=== PATIENT | male | born 1970 | race Caucasian/White ===

== ENCOUNTER 2020-01-24 16:01 | Emergency (ER) | payer OTHER ==
[2020-01-24 16:35] VITALS: BP 142/89; PULSE 91; RESP 18; TEMP 98
--- NOTE | 2020-01-24 17:05 | XR ---
EXAMINATION TYPE: XR shoulder complete LT DATE OF EXAM: 01/24/2020 CLINICAL HISTORY: Left shoulder pain after heavy lifting injury. TECHNIQUE: Three views of the left shoulder are obtained. COMPARISON: None. FINDINGS: There is no acute fracture/dislocation evident in the left shoulder. Moderate narrowing ac romioclavicular joint. Glenohumeral joint is maintained. The visualized ribs are intact and unremark able. IMPRESSION: There is no acute fracture or dislocation in the left shoulder.
--- NOTE | 2020-01-24 17:15 | ED ---
Upper Extremity HPI - General Chief Complaint: Extremity Injury, Upper Stated Complaint: [facility] - lt shoulder injury Source: patient Mode of arrival: ambulatory Limitations: no limitations - History of Present Illness Initial Comments: Patient is a 49-year-old male presenting to the emergency department with a chief complaint of a pulled muscle. Patient reports he was lifting a heavy patient will be felt a sudden onset of left shoulder pain. Patient is a suspecting a pulled muscle. Patient reports the pain is localized to the lateral aspect of his left shoulder. Patient denies any numbness or tingling. Reports pain with abduction against resistance. Denies taking any medication to alleviate the symptoms. Reports incident occurred several hours prior to arrival. States the pain increased in severity as time went on. - Related Data Allergies Allergy/AdvReac Type Severity Reaction Status Date / Time No Known Allergies Allergy Verified 01/24/20 16:35 Review of Systems ROS Statement: Those systems with pertinent positive or pertinent negative responses have been documented in the HPI. ROS Other: All systems not noted in ROS Statement are negative. Past Medical History Past Medical History: No Reported History History of Any Multi-Drug Resistant Organisms: None Reported Past Surgical History: Orthopedic Surgery Additional Past Surgical History / Comment(s): abdominal surgery Past Psychological History: No Psychological Hx Reported Smoking Status: Never smoker Past Alcohol Use History: Occasional Past Drug Use History: None Reported General Exam Limitations: no limitations General appearance: alert, in no apparent distress, obese Head exam: Present: atraumatic, normocephalic, normal inspection Eye exam: Present: normal appearance, PERRL, EOMI Pupils: Present: normal accommodation ENT exam: Present: normal exam, normal oropharynx, mucous membranes moist Neck exam: Present: normal inspection, full ROM. Absent: tenderness Respiratory exam: Present: normal lung sounds bilaterally. Absent: respiratory distress, wheezes, rales Cardiovascular Exam: Present: regular rate, normal rhythm, normal heart sounds Extremities exam: Present: normal inspection, tenderness (Positive Benedict test. Negative empty can test.), normal capillary refill, other (+2 ulnar and radial pulses bilaterally.). Absent: full ROM (Limited range of motion with abduction above 90.) Back exam: Present: normal inspection, full ROM. Absent: tenderness Neurological exam: Present: alert, oriented X3 Psychiatric exam: Present: normal affect, normal mood Skin exam: Present: warm, dry, intact, normal color Course Vital Signs 01/24/20 16:32 Temperature 98 F Pulse Rate 91 Respiratory 18 Rate Blood Pressure 142/89 O2 Sat by Pulse 96 Oximetry Medical Decision Making - Medical Decision Making Patient is a 49-year-old male resenting to emergency Department with a chief complaint of left shoulder injury. On exam patient is an negative empty can test but does have a positive Benedict test. Neurovascularly intact. I suspect an impingement-type injury of any of the rotator cuff muscles. X-rays unremarkable. Patient advised to follow-up with firearms specialist in alternate between Tylenol and Motrin for pain control. Return parameters discussed the patient is understanding and agreeable. Case discussed with physician. Disposition Clinical Impression: Injury of left shoulder, Left shoulder pain Disposition: HOME SELF-CARE Condition: Stable Instructions (If sedation given, give patient instructions): Rotator Cuff Injury (ED) Additional Instructions: Follow-up with an firearms specialist if symptoms do not improve. Alternate between Tylenol and Motrin for pain control. Apply ice compress to minimize symptoms. Is patient prescribed a controlled substance at d/c from ED?: No Referrals: None,Stated [Primary Care Provider] - 1-2 days Tavo Samaniego MD [STAFF PHYSICIAN] - 1-2 days Time of Disposition: 17:14
== END 2020-01-24 17:19 | disposition home or self-care (01) ==
LOC: EC 16:01
DX: S49.92XA Unspecified injury of left shoulder and upper arm, initial encounter (principal); Z98.890 Other specified postprocedural states; X50.0XXA Overexertion from strenuous movement or load, initial encounter; Y93.89 Activity, other specified; Y92.69 Other specified industrial and construction area as the place of occurrence of the external cause; Y99.0 Civilian activity done for income or pay
CPT/HCPCS: 99283

== ENCOUNTER → 2020-01-30 | Outpatient (CLI) | payer OTHER ==
--- NOTE | 2020-01-30 12:19 | MR ---
EXAMINATION TYPE: MR shoulder LT wo con DATE OF EXAM: 01/30/2020 COMPARISON: Plain film 01/24/2020 HISTORY: Left shoulder strain of muscles TECHNIQUE: Multiplanar, multisequence imaging of the left shoulder is performed without contrast. FINDINGS: Rotator Cuff: There is some thickening, abnormal increased signal within the rotator cuff tendon. Joo ng the anterior margin there is a small focal area of increased signal consistent with a probable par tial-thickness tear or partial full-thickness tear. Acromioclavicular Joint: Arthropathy at the acromioclavicular joint causes mass effect on the musculo tendinous junction of supraspinatus Glenohumeral Joint: Intact Labrum: The anterior labrum shows a multiseptated focus of T2 bright signal measuring approximately 1 .7 x 0.6 cm in sagittal image #19 of the T2 data set suggesting a paralabral cyst, suspected tear at this level of the glenoid labrum. Biceps Tendon: The long head of biceps is in normal location within bicipital groove. Bone marrow signal: Focal geode or pseudocyst thought present at the anterior margin of the bicipital groove measuring 1 cm in size Other: No additional significant abnormality is appreciated. IMPRESSION: Para labral cyst, findings suggesting possible anterior labral tear. Partial tear or partial full-thi ckness tear of the rotator cuff tendon at its anterior insertion. There is tendinosis present.
== END | disposition home or self-care (01) ==
LOC: RADMRIMAIN 08:49
PROVIDERS: ATTEND Emergency Medicine
DX: M75.122 Complete rotator cuff tear or rupture of left shoulder, not specified as traumatic (principal); M75.82 Other shoulder lesions, left shoulder

== ENCOUNTER → 2020-02-19 | Outpatient (CLI) | payer SELFPAY ==
[2020-02-19 08:28] LABS: Basophils % (A) 1 %; Eosinophils # (A) 0.2 k/uL (0-0.7); Eosinophils % (A) 3 %; HCT 47.8 % (39.0-53.0); HGB 15.8 gm/dL (13.0-17.5); Lymphocytes % (A) 29 %; MCH 31.2 pg (25.0-35.0); MCV 94.5 fL (80.0-100.0); Mean Platelet Volume 7.5; Monocytes # (A) 0.4 k/uL (0-1.0); Monocytes % (A) 6 %; Neutrophils # (A) 4.1 k/uL (1.3-7.7); Neutrophils % (A) 60 %; Platelet Count 263 k/uL (150-450); RBC 5.06 m/uL (4.30-5.90); RDW 13.3 % (11.5-15.5); WBC 6.9 k/uL (3.8-10.6)
[2020-02-19 09:06] LABS: Potassium 4.2 mmol/L (3.5-5.1)
== END | disposition home or self-care (01) ==
LOC: LABPAT 07:59
PROVIDERS: ATTEND Orthopaedic Surgery
DX: Z01.818 Encounter for other preprocedural examination (principal); M75.42 Impingement syndrome of left shoulder
CPT/HCPCS: 36415; 80051; 85025

== ENCOUNTER → 2020-02-23 | Day surgery (SDC) | payer OTHER ==
[2020-02-21 17:13] VITALS: BMI 34.4
--- NOTE | 2020-02-22 09:15 | HP ---
HISTORY AND PHYSICAL CHIEF COMPLAINT: Left shoulder pain. 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 He was moving a heavy patient onto a stretcher when the stretcher got stuck and he felt a sharp pull in his shoulder. He had pain ever since. He is having pain with overhead use and at night. He denies previous problems. He has been taking ibuprofen with partial relief. Currently he is off work. He denies previous problems. PAST MEDICAL HISTORY: Negative. PAST SURGICAL HISTORY: Negative. CURRENT MEDICATION: Ibuprofen. He denies drug allergies. FAMILY HISTORY: Noncontributory. SOCIAL HISTORY: Negative for current tobacco or alcohol use. 16 POINT REVIEW OF SYSTEMS: Otherwise reviewed and is noncontributory. PHYSICAL EXAMINATION: On examination, the patient is approximately 5 foot 10, 250 pounds of endomorphic habitus. HEENT exam is nonfocal. Neck is supple. On examination of his left shoulder, he is tender about the anterior subacromial space. He has mild subacromial crepitus. Active range of motion, forward elevation, 155 degrees external rotation with the arms at side, 65 degrees internal rotation to T11. Motor strength is 5/5 for external rotation with the arm at the side, 5-/5 for abduction. Impingement test, NEER test, and THE Speed test are positive. His distal neurovascular exam appears intact in the left upper extremity. MRI report left shoulder 01/30/2020 shows evidence of an anterior supraspinatus tear along with a questionable anterior paralabral cyst. X-rays show a type 2 acromion. IMPRESSION: Left acute rotator cuff tear/impingement. RECOMMENDATIONS: I talked to the patient at length regarding his condition along with treatment options. At this point he is quite symptomatic after this acute injury. After thorough discussion, he opts to proceed with surgery. We will plan to proceed with arthroscopic evaluation with probable subacromial decompression and possible rotator cuff repair versus debridement. Risks and benefits were discussed at length in layman's terms. We will likely perform that as an outpatient procedure. MMODL / IJN: [id number] /
[~2020-02-23] MED LIST: DEXAMETHASONE SOD PHOSPHATE 10 MG/ML 1 ML VIAL IV ONE; EPINEPHrine (PF) 1 ML in SODIUM CHLORIDE 0.9% IRRIGATIO 3,000 ML IRRIGATION ONE; HYDROmorphone 0.5 MG/0.5 ML SYRINGE IVP PRN; LACTATED RINGERS 1,000 ML IV ONE; LIDOCAINE 1% INJ 10MG/ML (20 ML MDV) ONE; MIDAZOLAM 2 MG/2 ML VIAL IV PRN; MIDAZOLAM 2 MG/2 ML VIAL ONE; ONDANSETRON 4 MG/2 ML VIAL IVP ONE; ONDANSETRON 4 MG/2 ML VIAL ONE; PHENYLEPHRINE-0.9% NACL SYG 1 MG/10 ML SYRINGE ONE; PROPOFOL 10 MG/ML 20 ML VIAL IV ONE; ROCURONIUM BROMIDE 10 MG/ML 5 ML VIAL IV ONE; ROPIVACAINE 5 MG/ML 30 ML VIAL ONE; SCOPOLAMINE 1.5MG/72HR PATCH TRANSDERM ONE; SUCCINYLCHOLINE CHLORIDE 100 MG/5 ML SYR IV ONE; fentaNYL (PF) 50 MCG/ML 2 ML AMP IVP ONE; fentaNYL (PF) 50 MCG/ML 2 ML AMP ONE
[2020-02-23] MEDS: LACTATED RINGERS 1,000 ML IV SCH ×2 (07:06→07:57)
--- NOTE | 2020-02-23 07:24 | P.ANPRN ---
Procedure Note - Anesthesia - Nerve Block Performed Left Interscalene Single Time Out Performed: Yes Date of Procedure: 02/23/20 Procedure Start Time: : Procedure Stop Time: :13 Location of Patient: PreOp Indication: Requested by Surgeon Specifically requested for management of pain by DrLouis: Nasim Selby Sedation Type: Sedate with meaningful contact maintained Preparation: Sterile Prep Position: Supine Needle Types: Pajunk Needle Gauge: 21 Ultrasound used to visualize needle placement: Yes Ultrasound used to observe medication spread: Yes Injectate: 0.5% Ropivacaine (see comment for volume) (20 ml+10 mg Dexamethason) Blood Aspirated: No Pain Paresthesia on Injection Noted: No Resistance on Injection: Normal Image Stored and Saved: Yes Events: Uneventful and Well Tolerated
--- NOTE | 2020-02-23 09:18 | P.OP ---
Date of Procedure: 02/23/20 Preoperative Diagnosis: Left rotator cuff tear Postoperative Diagnosis: Left shoulder impingement/acromioclavicular joint arthritis Procedure(s) Performed: Left shoulder arthroscopic subacromial decompression/distal clavicular resection/rotator cuff repair Implants: Arthrex 4.75 mm swivel lock anchor 1 Anesthesia: [facility] Surgeon: Nasim Selby Slide Fastener Repairer #1: Dragan Elizabeth Estimated Blood Loss (ml): 10 Pathology: none sent Condition: stable Disposition: PACU Indications for Procedure: The patient's a 49-year-old male who presents after injuring himself at work recently with persistent left shoulder symptoms. Clinically and by MRI he is noted of evidence of a symptomatic acute rotator cuff tear. A discussion of the risks and benefits of operative intervention versus continued conservative measures with patient. He opted to proceed with surgery. Operative risks to include infection, neurovascular injury, development of blood clots, possible tendon rerupture, possible postoperative stiffness and need for subsequent procedures was discussed. Informed consent was obtained. Operative Findings: As below Description of Procedure: The patient was brought to the operating room, and after induction of general anesthesia was placed in a beachchair position. A preoperative interscalene block was placed for postoperative analgesia. I examined the left shoulder. There was no gross block to passive motion or gross glenohumeral instability. The left upper extremity was prepped and draped in normal fashion. The bony outlines the acromion, distal clavicle, and coracoid process were outlined with a skin marker. The glenohumeral joint was inflated with 50 mL of saline utilizing a spinal needle from posterior approach. A posterior portal was made through a 5 mm skin incision 1 cm medial and inferior to the posterior lateral border time. A blunt trocar was used to easily into the joint. Diagnostic arthroscopy was performed. An anterior portal was made just lateral to the coracoid process entering the joint above the subscapularis tendon. The subscapularis tendon appeared to be intact. Anterior labrum was intact. The inferior recess was inspected. The posterior labrum was intact. The biceps tendon and its anchor were intact. On inspection the rotator cuff, a full- thickness tear involving the anterior aspect the supraspinatus was noted measuring 1 cm.. A lateral portal was made 2 centimeters inferior to the anterior lateral border of the acromion. The rotator cuff was inspected, and again the 1 cm full-thickness tear was noted. The edges were debrided with motorized shaver. This was easily brought back to the greater tuberosity. The soft tissue on the undersurface of the acromion was debrided with a motorized shaver and electrocautery clearly defining the anterior medial and lateral borders as well as the distal clavicle. An anterior inferior acromioplasty was performed with a motorized nafisa starting anterolateral, then extending this posteriorly, then extending this medially. I converted to a flat acromion and this was verified in the posterior and lateral viewing portals. The distal clavicle appeared to impinge in the subacromial space therefore the distal 4 mm of clavicle was resected with a motorized bur. A #2 fiber tape was passed through the rotator cuff with a scorpion suture passer. A lateral anchor was passed with the appropriate starting awl. A 4.75 mm swivel lock anchor was inserted with good purchase. Final arthroscopic view showed adequate compression at the footprint. The arthroscope was then removed. The portals were closed with simple 3-0 nylon sutures. A sterile dressing was applied in addition to a sling. The patient was then awoken from general anesthesia and transferred to recovery room in good condition. Blood loss was estimated at 10 mL. No complications were incurred. Sponge and needle counts were correct in the case. Ponce BALL assisted and the major components of the case to include arm positioning, anchor placement, and rotator cuff repair.
[2020-02-23 09:37] VITALS: TEMP 96.9
[2020-02-23 10:15] VITALS: RESP 17
[2020-02-23 11:01] VITALS: BP 122/75; PULSE 80
== END | disposition home or self-care (01) ==
LOC: OR 06:02
PROVIDERS: ATTEND Orthopaedic Surgery
DX: S46.012A Strain of muscle(s) and tendon(s) of the rotator cuff of left shoulder, initial encounter (principal); M19.012 Primary osteoarthritis, left shoulder; X50.0XXA Overexertion from strenuous movement or load, initial encounter
CPT/HCPCS: 64415; 76942; 29824; 29826; 29827; C1713 ×2; J2250; J1100; J0690; J2405; J0171; J2001; J3010; J2795; J2370; J0330; J2704

== ENCOUNTER → 2020-11-14 | Outpatient (CLI) | payer OTHER ==
--- NOTE | 2020-11-15 07:51 | MR ---
EXAMINATION TYPE: MR shoulder RT wo con DATE OF EXAM: 11/14/2020 COMPARISON: None HISTORY: R shoulder pain Technique: Multiplanar, multiecho imaging on a 3.0 Radha magnet is performed through the shoulder. Findings: Long head of the biceps tendon is within the bicipital groove. No significant fluid around the long head biceps tendon is evident. No significant joint effusion is evident. Subacromial bursa and subdeltoid bursa appear normal. Edwin oid labrum as visualized on this noncontrast study appears intact. Rotator cuff tendons are evaluated. Rotator cuff tendons as visualized appear intact. The acromiocl avicular junction has mild hypertrophy. Mass some mild inferior spurring which can contribute to impi ngement syndrome IMPRESSIONS: 1. Limited examination due to body habitus and coil signal. 2. No obvious changes to suggest rotator cuff tear.
== END | disposition home or self-care (01) ==
LOC: RADMRIMAIN 11:00
PROVIDERS: ATTEND Orthopaedic Surgery
DX: M25.511 Pain in right shoulder (principal)

== ENCOUNTER → 2021-05-26 | Outpatient (CLI) | payer OTHER ==
[2021-05-26 10:40] LABS: Basophils % (A) 0 %; Eosinophils # (A) 0.3 k/uL (0-0.7); Eosinophils % (A) 4 %; HCT 47.6 % (39.0-53.0); HGB 16.3 gm/dL (13.0-17.5); Lymphocytes # (A) 2.3 k/uL (1.0-4.8); Lymphocytes % (A) 28 %; MCHC 34.2 g/dL (31.0-37.0); MCV 96.4 fL (80.0-100.0); Mean Platelet Volume 7.5; Monocytes # (A) 0.5 k/uL (0-1.0); Monocytes % (A) 6 %; Neutrophils % (A) 61 %; Platelet Count 287 k/uL (150-450); RBC 4.93 m/uL (4.30-5.90); WBC 8.3 k/uL (3.8-10.6)
[2021-05-26 10:46] LABS: Potassium 4.3 mmol/L (3.5-5.1)
== END | disposition home or self-care (01) ==
LOC: LABPAT 09:02
PROVIDERS: ATTEND Orthopaedic Surgery
DX: Z01.818 Encounter for other preprocedural examination (principal)
CPT/HCPCS: 36415; 80051; 85025; 93005

== ENCOUNTER 2021-05-30 05:58 | Day surgery (SDC) | payer OTHER ==
--- NOTE | 2021-05-28 13:19 | HP ---
HISTORY AND PHYSICAL CHIEF COMPLAINT: Right shoulder pain. HISTORY OF PRESENT ILLNESS: Patient is a 50-year-old [id number] male who presents with progressive right shoulder pain for the past year. He is having a difficult time with overhead activity and at night. He has tried previous conservative measures to include medications, therapy and injections, without much relief. He notes daily pain that limits him. PAST MEDICAL HISTORY: Otherwise negative. PAST SURGICAL HISTORY: Significant for left shoulder arthroscopic rotator cuff repair. CURRENT MEDICATIONS: Tramadol and ibuprofen. ALLERGIES: HE DENIES DRUG ALLERGIES. FAMILY HISTORY: Noncontributory. SOCIAL HISTORY: Negative for current tobacco or alcohol use. REVIEW OF SYSTEMS: Sixteen-point review of systems is otherwise reviewed and is noncontributory. PHYSICAL EXAMINATION: On examination, the patient is approximately 5 feet 10 inches, 260 pounds of endomorphic habitus. HEENT exam is nonfocal. Neck is supple. On examination of his right shoulder, he is tender about the anterior subacromial space. Active range of motion: Forward elevation 155 degrees of flexion, external rotation with arm at side 65 degrees, internal rotation to L1. Motor strength 5/5 for abduction and external rotation. Impingement and Neer tests are positive. His distal neurovascular exam appears intact in the right upper extremity. X-rays of the right shoulder show a type 2 acromion with maintained humeral head to acromial distance. MRI report of the right shoulder shows the rotator cuff appears to be intact. IMPRESSION: Right shoulder impingement/rotator cuff tendinitis. RECOMMENDATIONS: I talked to the patient at length regarding his condition along with treatment options. At this point he is quite symptomatic and limited with having pain despite conservative measures. After thorough discussion, he opts to proceed with surgery. We will plan to proceed with arthroscopic evaluation with probable subacromial decompression. Risks and benefits were discussed at length in layman's terms. MMODL / IJN: [id number] /
[2021-05-29 08:58] VITALS: BMI 37.3
[~2021-05-30 05:58] MED LIST changes: -DEXAMETHASONE SOD PHOSPHATE 10 MG/ML 1 ML VIAL IV ONE; +DEXAMETHASONE SOD PHOSPHATE 4 MG/ML 1 ML VIAL IV ONE; -EPINEPHrine (PF) 1 ML in SODIUM CHLORIDE 0.9% IRRIGATIO 3,000 ML IRRIGATION ONE; -HYDROmorphone 0.5 MG/0.5 ML SYRINGE IVP PRN; -LACTATED RINGERS 1,000 ML IV ONE; +LACTATED RINGERS 1,000 ML IV SCH; -LIDOCAINE 1% INJ 10MG/ML (20 ML MDV) ONE; -MIDAZOLAM 2 MG/2 ML VIAL ONE; -ONDANSETRON 4 MG/2 ML VIAL ONE; -PHENYLEPHRINE-0.9% NACL SYG 1 MG/10 ML SYRINGE ONE; -PROPOFOL 10 MG/ML 20 ML VIAL IV ONE; -ROCURONIUM BROMIDE 10 MG/ML 5 ML VIAL IV ONE; -ROPIVACAINE 5 MG/ML 30 ML VIAL ONE; -SUCCINYLCHOLINE CHLORIDE 100 MG/5 ML SYR IV ONE; -fentaNYL (PF) 50 MCG/ML 2 ML AMP IVP ONE; -fentaNYL (PF) 50 MCG/ML 2 ML AMP ONE
[2021-05-30] MEDS ORDERED: LIDOCAINE 1% (10MG/ML) FOR IV START INTRADERMA ONE (06:53)
[2021-05-30] MEDS ORDERED: HYDROmorphone 0.5 MG/0.5 ML SYRINGE IVP PRN (07:00)
[2021-05-30] MEDS ORDERED: MIDAZOLAM 2 MG/2 ML VIAL IVP ONE (07:04)
[2021-05-30] MEDS ORDERED: fentaNYL (PF) 50 MCG/ML 2 ML AMP IVP ONE (07:04)
[2021-05-30] MEDS ORDERED: PROPOFOL 10 MG/ML 20 ML VIAL IV ONE (07:50)
[2021-05-30] MEDS ORDERED: PHENYLEPHRINE-0.9% NACL SYG 1,000 MCG/10 ML SYRINGE ONE (07:50)
[2021-05-30] MEDS ORDERED: SUCCINYLCHOLINE CHLORIDE 100 MG/5 ML SYR IV ONE (07:50)
[2021-05-30] MEDS ORDERED: LIDOCAINE 1% INJ 10MG/ML (20 ML MDV) ONE (07:50)
[2021-05-30] MEDS ORDERED: NEOSTIGMINE 1 MG/ML 10 ML VIAL ONE (07:50)
[2021-05-30] MEDS ORDERED: ROPIVACAINE 5 MG/ML 30 ML VIAL ONE (07:50)
[2021-05-30] MEDS ORDERED: MIDAZOLAM 2 MG/2 ML VIAL ONE (07:50)
[2021-05-30] MEDS ORDERED: ROCURONIUM 10 MG/ML (5 ML VIAL) IV ONE (07:50)
[2021-05-30] MEDS ORDERED: GLYCOPYRROLATE 0.2 MG/ML 2 ML VIAL ONE (07:50)
--- NOTE | 2021-05-30 08:58 | P.OP ---
Date of Procedure: 05/30/21 Preoperative Diagnosis: Right shoulder impingement/rotator cuff tendinitis Postoperative Diagnosis: Same in addition to a partial thickness articular surface rotator cuff tear and type I superior labral tear Procedure(s) Performed: Right shoulder arthroscopic subacromial decompression/superior labral debridement Anesthesia: carson SIMON Surgeon: Nasim Selby Rehabilitation Consultant #1: Titi Em Estimated Blood Loss (ml): 10 Pathology: none sent Condition: stable Disposition: PACU Indications for Procedure: The patient's a 50-year-old male presents with persistent/progressive right shoulder pain despite conservative measures. A discussion of the risks and benefits of operative intervention versus continued conservative measures was made with patient. He opted to proceed with surgery. Operative risks to include infection, neurovascular injury, development of blood clots, possible incomplete resolution of symptoms, possible worsening symptoms and need for subsequent procedures was discussed. Informed consent was obtained. Operative Findings: As below Description of Procedure: The patient was brought to the operating room, and after induction of general anesthesia was placed in a beachchair position. A preoperative interscalene block was placed for postoperative analgesia. I examined the right shoulder. There was no gross block to passive motion or gross glenohumeral instability. The right upper extremity was prepped and draped in normal fashion. The bony outlines the acromion, distal clavicle, and coracoid process were outlined with a skin marker. The glenohumeral joint was inflated with 50 mL of saline utilizing a spinal needle from posterior approach. A posterior portal was made through a 5 mm skin incision 1 cm medial and inferior to the posterior lateral border time. A blunt trocar was used to easily into the joint. Diagnostic arthroscopy was performed. An anterior portal was made just lateral to the coracoid process entering the joint above the subscapularis tendon. The subscapularis tendon appeared to be intact. Anterior labrum was intact. The inferior recess was inspected. The posterior labrum was intact. On inspection of the superior labrum, there was a type I tear that was debrided back to stable base with a motorized shaver. The remaining anchor appear to be intact. The intra-articular portion the biceps was intact. On inspection the rotator cuff, a partial thickness tear involving the anterior aspect the supraspinatus was noted involving 10% of the tendon thickness. This was debrided back to a stable base with a motorized shaver. The remaining rotator cuff appeared intact on the articular surface. The arthroscope was placed into the subacromial space. A lateral portal was made 2 centimeters inferior to the anterior lateral border of the acromion. The soft tissue on the undersurface of the acromion was debrided with a motorized shaver and electrocautery clearly defining the anterior medial and lateral borders as well as the distal clavicle. An anterior inferior acromioplasty was performed with a motorized nafisa starting anterolateral, then extending this posteriorly, then extending this medially. I converted to a flat acromion and this was verified in the posterior and lateral viewing portals. There was significant bursal thickening in the subacromial space. The stability with a motorized shaver. There was some fraying of the rotator cuff however no blanco full thickness tears. The arthroscope was then removed. The portals were closed with simple 3-0 nylon sutures. A sterile dressing was applied in addition to a sling. The patient was then awoken from general anesthesia and transferred to recovery room in good condition. Blood loss was estimated at 10 mL. No complications were incurred. Sponge and needle counts were correct in the case. Titi BALL assisted and the major components of the case to include arm positioning, decompression, and labral debridement.
[2021-05-30 09:09] VITALS: TEMP 96.8
[2021-05-30] MEDS ORDERED: LACTATED RINGERS 1,000 ML IV ONE (09:12)
[2021-05-30 10:01] VITALS: BP 118/72; PULSE 94; RESP 18
--- NOTE | 2021-05-30 13:38 | P.ANPRN ---
Procedure Note - Anesthesia - Nerve Block Performed Right Interscalene Single Time Out Performed: Yes ([id number]) Date of Procedure: 05/30/21 Procedure Start Time: 07:04 Procedure Stop Time: 07:09 Location of Patient: PreOp Indication: Acute Post-Operative Pain, Requested by Surgeon Specifically requested for management of pain by : Nasim Selby Sedation Type: Sedate with meaningful contact maintained Preparation: Sterile Prep Position: Supine Catheter: None Needle Types: Pajunk Needle Gauge: 21 Ultrasound used to visualize needle placement: Yes Ultrasound used to observe medication spread: Yes Injectate: 0.5% Ropivacaine (see comment for volume) Blood Aspirated: No Pain Paresthesia on Injection Noted: No Resistance on Injection: Normal Image Stored and Saved: Yes Events: Uneventful and Well Tolerated
== END 2021-05-30 10:26 | disposition home or self-care (01) ==
LOC: OR 05:58
PROVIDERS: ATTEND Orthopaedic Surgery
DX: M25.811 Other specified joint disorders, right shoulder (principal); M75.101 Unspecified rotator cuff tear or rupture of right shoulder, not specified as traumatic; S43.431A Superior glenoid labrum lesion of right shoulder, initial encounter; X58.XXXA Exposure to other specified factors, initial encounter; G47.33 Obstructive sleep apnea (adult) (pediatric); F41.9 Anxiety disorder, unspecified; K21.9 Gastro-esophageal reflux disease without esophagitis; Z98.890 Other specified postprocedural states; Z79.1 Long term (current) use of non-steroidal anti-inflammatories (NSAID); Z79.891 Long term (current) use of opiate analgesic
CPT/HCPCS: 64415; 76942; 29822; J2250; J1100; J2710; J0690; J2405; J2001; J3010; J2795; J2370; J0330; J2704

== ENCOUNTER → 2021-06-10 | Outpatient (CLI) | payer OTHER ==
--- NOTE | 2021-06-10 12:10 | XR ---
EXAMINATION TYPE: XR knee limited LT DATE OF EXAM: 06/10/2021 CLINICAL HISTORY: Pain after twisting injury TECHNIQUE: Frontal and lateral views of the left knee are obtained. COMPARISON: MRI left knee July 04, 2015 FINDINGS: There is no acute fracture/dislocation evident in left knee. Mild to moderate tricompartme nt joint space loss and spurring greatest medial tibiofemoral compartment is redemonstrated. The ove rlying soft tissue shows mild posterior vascular calcification. IMPRESSION: As above.
== END | disposition home or self-care (01) ==
LOC: RADXRMAIN 11:39
PROVIDERS: ATTEND Family Medicine
DX: S83.92XA Sprain of unspecified site of left knee, initial encounter (principal)

== ENCOUNTER → 2023-03-09 | Outpatient (CLI) | payer OTHER ==
--- NOTE | 2023-03-10 10:15 | MR ---
EXAMINATION TYPE: MR knee RT wo con DATE OF EXAM: 03/09/2023 COMPARISON: None HISTORY: Right knee pain TECHNIQUE: Multiplanar, multisequence imaging of the right knee is performed without IV contrast. FINDINGS: MEDIAL MENISCUS: Posterior horn medial meniscus. Anterior horn is intact. LATERAL MENISCUS: Anterior and posterior horns are intact without tear. CRUCIATE LIGAMENTS: The anterior and posterior cruciate ligaments are intact and unremarkable. COLLATERAL LIGAMENTS: The medial collateral ligament and lateral collateral ligament complex are inta ct and unremarkable. EXTENSOR MECHANISM: Visualized quadriceps and patellar tendons are intact. EFFUSION: No significant suprapatellar joint effusion. POPLITEAL CYST: No popliteal/morrow cyst. TRICOMPARTMENT SPACES: Mild narrowing medial tibiofemoral joint space. Subchondral cyst formation pos terior and medial tibial plateau. CARTILAGE: Thinning of the medial tibiofemoral cartilage. BONE MARROW SIGNAL: No focal abnormal marrow signal is appreciated. OTHER: No additional significant abnormality is appreciated. IMPRESSION: 1. Tear posterior horn medial meniscus. 2. Changes of osteoarthritis.
== END | disposition home or self-care (01) ==
LOC: RADMRIMAIN 18:35
PROVIDERS: ATTEND Orthopaedic Surgery
DX: M23.221 Derangement of posterior horn of medial meniscus due to old tear or injury, right knee (principal); M17.11 Unilateral primary osteoarthritis, right knee

== ENCOUNTER → 2023-03-09 | Outpatient (CLI) | payer OTHER ==
--- NOTE | 2023-03-09 20:28 | MR ---
EXAMINATION TYPE: MR lumbar spine wo con DATE OF EXAM: 03/09/2023 7:43 PM COMPARISON: Lumbar spine 03/01/2023. CLINICAL INDICATION: Male, 52 years old with history of [id number]; PHH, Low back pain that radiates down left leg TECHNIQUE: Multi planar, multi sequence imaging was performed utilizing: T1-weighted, T2-weighted, a nd turbo inversion recovery imaging of the lumbar spine. IV Contrast: None. FINDINGS: Alignment: The lumbar vertebral bodies have preserved heights and alignment. Cord: The conus medullaris and the distal spinal cord appear unremarkable with regards to their signa l intensity and morphology. Bones/Discs: Mild multilevel disc degeneration changes with some Modic endplate changes, disc desicca tion, Schmorl's nodes and facet joint arthropathy. Findings worse at L5-S1. T12-L1: No evidence of significant spinal canal stenosis or neural foraminal stenosis. L1-L2: No evidence of significant spinal canal stenosis or neural foraminal stenosis. L2-L3: No evidence of significant spinal canal stenosis or neural foraminal stenosis. L3-L4: No evidence of significant spinal canal stenosis or neural foraminal stenosis. L4-L5: No evidence of significant spinal canal stenosis or neural foraminal stenosis. L5-S1: The disc is rounded posterior morphology without significant spinal canal stenosis. Facet join t arthropathy with mild to moderate bilateral left greater than right. Neural foraminal stenosis. No significant spinal canal or neural foraminal stenosis in the remainder of the visualized levels. Other findings: None. IMPRESSION: 1. No definitive evidence of disc herniation or significant spinal canal stenosis. 2. Mild disc degeneration with associated osteoarthritic changes.
== END | disposition home or self-care (01) ==
LOC: RADMRIMAIN 18:32
PROVIDERS: ATTEND Orthopaedic Surgery
DX: M51.16 Intervertebral disc disorders with radiculopathy, lumbar region (principal); M47.26 Other spondylosis with radiculopathy, lumbar region
CPT/HCPCS: 72148

== ENCOUNTER → 2023-05-13 | Outpatient (CLI) | payer OTHER ==
[2023-05-13 14:23] VITALS: BP 131/91; PULSE 76; RESP 16; TEMP 98.1
--- NOTE | 2023-05-13 14:42 | P.PAINPG ---
PQRS Measure Charge Sheet Comment: A 52 yr old male with a history of severe and chronic LBP secondary to lumbar DDD and spondylosis with facet arthropathy without myelopathy presents today for evalautin s/p BL MBB L4-L5, L5-S1 #1. Pt states he experienced 80 % pain relief x 48 hrs s/p procedure. Pain level is provoked at 7 /10 in intensity, constant, localized in the lumbar spine, sharp in character without shooting pain . Pain is provoked by sitting/ standing for periods of 20 min or more. Pain is alleviated with injections, PT semi weekly x 5 wks w last visit in May 2023, heat, ice, medications ([employer], Ibu), repositioning and rest. Oswestry axial pain score at 32. Interventional pain procedures completed include BL MBB L3-L5 x1 Patient is currently on [employer], Ibu Patient denies any side effects of the medication(s), denies excessive drowsiness or sleepiness, denies suicidal ideation and reports that the current pain medication is helping to control the pain and improve activities of daily living. Patient denies any motor or sensory deficits. Patient denies any fever or night sweats, denies any change in the bowel movements or urination. Physical Examination: -Constitutional: Cooperative. Not in acute distress . - Neurologic: Cranial nerve II to XII intact. No focal neurological deficits. - Psychatric: Alert & oriented x 3. Matching mood & appropriate affect. Judgment and insight intact. - Musculoskeletal: Cervical spine: Muscle bulk/ tone/ strength in the bilateral upper extremities normal Vertebral body tenderness to palpation over Spurling test positive Distraction test positive Facet loading test positive TTP Thoracic spine Muscle bulk / tone/ strength in the bilateral paraspinal muscles normal Vertebral body tender to palpation over Facet loading test positive TTP Lumbar spine: Motor bulk/ tone/ strength lower extremities , thigh and legs : 5/5 Deep tendon reflexes : Normal Knee Jerk. Normal Ankle Jerk . Vertebral body tenderness to palpation over Jameson Test positive Lumbar Facet Loading Test positive over BL L4-L5, L5-S1 Straight Leg Raise: positive at 30 degrees right side/ left side Gaenslen's Test positive Sacral spine : Severe tenderness over the Sacroiliac joint: right side / left side Range of motion: Flexion of the lumbar spine <60 degrees Range of motion: Extension of the lumbar spine <20 degrees Gaenslen's Test positive right side / left side Leena test: positive right side / left side Thigh Thrust Test positive right side / left side Sacral Thrust Test positive right side / left side Assessment and plan: Chronic LBP secondary to lumbar DDD, spondylosis with facet arthropathy without myelopathy Recommendation of BL MBB L3-L5 #2. May need a series of injections, up until RFA, for optimal pain relief. Risks, benefits of procedure discussed and pt verbalized understanding. Admits to anticoagulant use or medical history of diabetes. Protocol for discontinuation/ continuation of medications bert procedure discussed. Minimal anesthesia provided, if clinically indicated, consisting of Versed and Fentanyl. All questions answered. I have spent less than 30 minutes on patient care today. Dr Naranjo was available by phone for the evaluation of this patient. The time was used to review the medical records including relevant urine studies and Prescription history (MAPs), review of the available imaging, evaluation and examination of the patient, coordination of care with the medical staff and if applicable referring physicians, as well as creation of the medical record PQRS Narrative: Smoking Status Never smoker Hx Alcohol Use (MH) No Home Medications: Ambulatory Orders DULoxetine HCL [Cymbalta] 60 mg PO DAILY 02/22/23 FLUoxetine HCL 20 mg PO DAILY 02/22/23 HYDROcodone/APAP 7.5-325MG [[employer] 7.5-325] 1 tab PO Q6HR PRN 3 Days #12 tab 02/22/23 Meloxicam [Mobic] 15 mg PO BID 02/22/23 Omeprazole 40 mg PO DAILY 02/22/23 amLODIPine [Norvasc] 5 mg PO DAILY 02/22/23 diazePAM [Valium] 5 mg PO BID 02/22/23 Controlled Substance Measures - Controlled Substance Measures Is patient prescribed a controlled substance at discharge?: No
== END ==
LOC: PNWHC3 13:50
PROVIDERS: ATTEND Specialist
DX: M51.37 Other intervertebral disc degeneration, lumbosacral region (principal); M47.817 Spondylosis without myelopathy or radiculopathy, lumbosacral region; G89.29 Other chronic pain
CPT/HCPCS: 99211

== ENCOUNTER → 2023-06-16 | Outpatient (CLI) | payer OTHER ==
[2023-06-16 14:16] VITALS: BP 176/92; PULSE 88; RESP 16; TEMP 98
--- NOTE | 2023-06-16 14:50 | P.PAINPG ---
Objective - Vital Signs Vital signs: Intake & Output 06/15/23 06/16/23 06/16/23 18:59 06:59 18:59 Weight 113.398 kg PQRS Measure Charge Sheet Comment: A 52 yr old male with a history of severe and chronic LBP secondary to lumbar DDD and spondylosis with facet arthropathy without myelopathy presents today for evaluation s/p BL MBB L4-L5, L5-S1 #2. Pt states he experienced 80 % pain relief x 1.5 wks s/p procedure. Pain level is provoked at 6 /10 in intensity, constant, predominantly axial, localized in the lumbar spine, sharp in character without shooting pain . Pain is provoked by sitting/ standing for periods of 20 min or more. Pain is alleviated with injections, PT semi weekly x 5 wks w last visit in May 2023, heat, ice, medications, repositioning and rest. Oswestry axial pain score at 30. Interventional pain procedures completed include BL MBB L3-L5 x2, Cervical injections w a Neurologist Patient is currently on [place], Ibu Patient denies any side effects of the medication(s), denies excessive drowsiness or sleepiness, denies suicidal ideation and reports that the current pain medication is helping to control the pain and improve activities of daily living. Patient denies any motor or sensory deficits. Patient denies any fever or night sweats, denies any change in the bowel movements or urination. Physical Examination: -Constitutional: Cooperative. Not in acute distress . - Neurologic: Cranial nerve II to XII intact. No focal neurological deficits. - Psychatric: Alert & oriented x 3. Matching mood & appropriate affect. Judgment and insight intact. - Musculoskeletal: Cervical spine: Muscle bulk/ tone/ strength in the bilateral upper extremities normal Vertebral body tenderness to palpation over Spurling test positive Distraction test positive Facet loading test positive TTP Thoracic spine Muscle bulk / tone/ strength in the bilateral paraspinal muscles normal Vertebral body tender to palpation over Facet loading test positive TTP Lumbar spine: Motor bulk/ tone/ strength lower extremities , thigh and legs : 5/5 Deep tendon reflexes : Normal Knee Jerk. Normal Ankle Jerk . Vertebral body tenderness to palpation over Jameson Test positive Lumbar Facet Loading Test positive over BL L4-L5, L5-S1 Straight Leg Raise: positive at 30 degrees right side/ left side Gaenslen's Test positive Sacral spine : Severe tenderness over the Sacroiliac joint: right side / left side Range of motion: Flexion of the lumbar spine <60 degrees Range of motion: Extension of the lumbar spine <20 degrees Gaenslen's Test positive right side / left side Leena test: positive right side / left side Thigh Thrust Test positive right side / left side Sacral Thrust Test positive right side / left side Assessment and plan: Chronic LBP secondary to lumbar DDD, spondylosis with facet arthropathy without myelopathy Recommendation of BL RFA L3-L5. Exhibited optimal pain relief w prior MBBs. Risks, benefits of procedure discussed and pt verbalized understanding. Admits to anticoagulant use or medical history of diabetes. Protocol for discontinuation/ continuation of medications bert procedure discussed. Minimal anesthesia provided, if clinically indicated, consisting of Versed and Fentanyl. All questions answered. I have spent less than 30 minutes on patient care today. Dr Naranjo was available by phone for the evaluation of this patient. The time was used to review the medical records including relevant urine studies and Prescription hi story (MAPs), review of the available imaging, evaluation and examination of the patient, coordination of care with the medical staff and if applicable referring physicians, as well as creation of the medical record - Pain Location Bilateral Lower Back Non-Pharmacological Interventions: Heat, Ice, Inactivity, Physical Therapy, Sitting Pharmacological Interventions: Block, PRN Medication, Scheduled Medication, Topical Medication PQRS Narrative: Smoking Status Never smoker Hx Alcohol Use (MH) No Home Medications: Ambulatory Orders DULoxetine HCL [Cymbalta] 60 mg PO DAILY 02/22/23 FLUoxetine HCL 20 mg PO DAILY 02/22/23 HYDROcodone/APAP 7.5-325MG [[place] 7.5-325] 1 tab PO Q6HR PRN 3 Days #12 tab 02/22/23 Meloxicam [Mobic] 15 mg PO BID 02/22/23 Omeprazole 40 mg PO DAILY 02/22/23 amLODIPine [Norvasc] 5 mg PO DAILY 02/22/23 diazePAM [Valium] 5 mg PO BID 02/22/23 Controlled Substance Measures - Controlled Substance Measures Is patient prescribed a controlled substance at discharge?: No
== END ==
LOC: PNWHC3 13:22
PROVIDERS: ATTEND Specialist
DX: M51.37 Other intervertebral disc degeneration, lumbosacral region (principal); M47.817 Spondylosis without myelopathy or radiculopathy, lumbosacral region; G89.29 Other chronic pain; E11.9 Type 2 diabetes mellitus without complications
CPT/HCPCS: 99211

== ENCOUNTER 2023-07-09 06:08 | Day surgery (SDC) | payer OTHER ==
[2023-07-09] MEDS ORDERED: LACTATED RINGERS 1,000 ML IV SCH (06:58)
[2023-07-09] MEDS ORDERED: ONDANSETRON 4 MG/2 ML VIAL ONE (07:08)
[2023-07-09] MEDS ORDERED: ONDANSETRON 4 MG/2 ML VIAL IVP ONE (07:11)
[2023-07-09 07:15] VITALS: RESP 18; TEMP 100.5
[2023-07-09] MEDS ORDERED: methylPREDNISolone ACETATE 40 MG/ML 1 ML VIAL ONE (07:28)
[2023-07-09] MEDS ORDERED: ROPIVACAINE 5MG/ML 20ML VIAL ONE (07:28)
[2023-07-09] MEDS ORDERED: MIDAZOLAM 2 MG/2 ML VIAL ONE (07:38)
[2023-07-09] MEDS ORDERED: fentaNYL (PF) 50 MCG/ML 2 ML AMP ONE (07:38)
--- NOTE | 2023-07-09 08:02 | P.PCN ---
Date of Procedure: 07/09/23 Procedure(s) Performed: PREOPERATIVE DIAGNOSIS: 1-Lumbar Spondylosis with Facet Arthropathy without myelopathy. 2- Lumber degenerative disc disease. POSTOPERATIVE DIAGNOSIS: 1- Lumbar Spondylosis with Facet Arthropathy without myelopathy. 2- Lumber degenerative disc disease. PROCEDURES : Bilateral Radiofrequency thermocoagulation, L3 , L4 , and L5 medial branch, with fluoroscopic guidance (fluoroscopy images available in the radiology department) ( to denervate the facet joint at bilateral L4-5 ,and L5-S1 levels ). ANESTHESIA: Monitored anesthesia care as per anesthesia department . EBL: Minimal PROCEDURE INDICATION: The patient with low back pain secondary to lumbar facet arthropathy who had more than 50% relief of her pain with previous diagnostic lumbar medial branch block with bupivacaine. PROCEDURE DESCRIPTION / TECHNIQUE: The patient was seen and identified in the preoperative area. Risks, benefits, complications, including but not limited to risk of infection ,bleeding , allergic reactions to the medications and no complete pain releife , and alternatives were discussed with the patient, the patient agreed to proceed with the procedure and signed the consent. IV was started. Vital signs remained stable throughout the procedure. Patient was taken to the OR and time out was completed. The patient was placed in the prone position on the procedure table. The lumber area was prepped and draped in the usual sterile fashion. . Vital signs were closely monitored during the procedure .IV sedation was used during the procedure to decrease patients anxiety. Using AP and then oblique fluoroscopy, the ``eye of the [place] dog joe esponding to the connection between the superior and transverse articular processes of right L3, L4, and L5 were identified, marked, and localized with 1% lidocaine. Subsequently, a 18 [id number] radiofrequency cannula with a 10- mm active tip was advanced guided by fluoroscopy to each of the``eyes of the [place] dog at right L3, L4, and L5. Each site then underwent sensory testing at 50 Hz and 0 to 1 volt and motor testing at 2.5 Hz and 0 to 3 volt with local stimulation, but no radicular symptoms down the legs. Thereafter each sites underwent radiofrequency thermocoagulation at 80 degrees celsius for 90 seconds after injecting 0.5 ml of PF Ropivacaine 1ml, then after the thermocoagulation done , 1 ml of the block solution containing Depo-Medrol 20 mg and 3 ml of Ropivacaine 0.5% was injected at the right L3 , L4 , and L5 , levels after negative aspiration of CSF and blood and with no paresthesias. Cannulas were retracted while injecting lidocaine 1% until the needle is out. The same procedure was repeated at the level of Left L3, L4, and L5 levels. At the end of the procedure, the skin was cleansed and bandages were applied. COMPLICATIONS: No acute complications. DISPOSITION / PLANS: The patient was placed in a supine position and transferred to the recovery area in a stable condition for observation and was discharged from the recovery room after meeting discharge criteria. Home discharge instructions given to the patient by the staff. The patient was reexamined prior to discharge. The patient will schedule a follow up in the clinic in 2-4 weeks.
[2023-07-09] MEDS ORDERED: LACTATED RINGERS 1,000 ML IV ONE (08:16)
[2023-07-09 08:30] VITALS: BP 134/84; PULSE 78
--- NOTE | 2023-07-09 12:05 | FL ---
EXAMINATION TYPE: FL guided pain mgmt statistic DATE OF EXAM: 07/09/2023 FLUOROSCOPY Fluoroscopy time of 30 seconds was used during lumbar radiofrequency ablation. 8 image/s document/s the procedure. .[id number] mGym2
== END 2023-07-09 08:41 | disposition home or self-care (01) ==
LOC: ORPAIN 06:08
PROVIDERS: ATTEND Specialist
DX: M47.816 Spondylosis without myelopathy or radiculopathy, lumbar region (principal); M51.36 Other intervertebral disc degeneration, lumbar region; I10 Essential (primary) hypertension; E78.5 Hyperlipidemia, unspecified; G89.29 Other chronic pain; K21.9 Gastro-esophageal reflux disease without esophagitis; Z79.899 Other long term (current) drug therapy
CPT/HCPCS: 64635; 64636 ×2; J2250; J1030; J2405; J3010; J2795

== ENCOUNTER → 2023-08-11 | Outpatient (CLI) | payer MEDICARE, OTHER ==
--- NOTE | 2023-08-11 14:45 | XR ---
EXAMINATION TYPE: XR cervical spine limited DATE OF EXAM: 08/11/2023 COMPARISON: None HISTORY: Chronic neck pain TECHNIQUE: 3 views cervical spine FINDINGS: Prevertebral space is normal. Degenerative disc changes present C5-6. Posterior spinal lame llar line is intact. Vertebral body heights are preserved. Remaining disc heights are preserved. Alig nment appears normal. IMPRESSION: 1. Degenerative disc change C5-6
== END | disposition home or self-care (01) ==
LOC: RADXRMAIN 14:17
PROVIDERS: ATTEND Physician Assistant Medical
DX: M50.322 Other cervical disc degeneration at C5-C6 level (principal)
CPT/HCPCS: 72040

== ENCOUNTER → 2023-08-11 | Outpatient (CLI) | payer MEDICARE, OTHER ==
[2023-08-11 14:14] VITALS: BP 138/72; PULSE 76; RESP 15; TEMP 98.3
--- NOTE | 2023-08-11 14:33 | P.PAINPG ---
Objective - Vital Signs Vital signs: Intake & Output 08/10/23 08/11/23 08/11/23 18:59 06:59 18:59 Weight 106.594 kg PQRS Measure Charge Sheet Comment: A 52 yr old male with a history of severe and chronic LBP secondary to lumbar DDD and spondylosis with facet arthropathy without myelopathy presents today for evaluation s/p BL RFA L4-L5, L5-S1. Pt states he experienced 100 % pain relief s/p procedure. Pain level is provoked at 8 /10 in intensity, constant, pr edominantly axial, localized in the cervical spine, sharp in character without shooting pain . Pain is provoked by lateral flexion and rotation. Pain is alleviated with injections, PT semi weekly x 5 wks w last visit in May 2023 (lumbar) and PT x 6 wks in 2021 (cervical), physician guided home exercises for cervical spine 4 times weekly since Apr 2022, heat, ice, medications, repositioning and rest. Cervical disability score at 25. Interventional pain procedures completed include BL MBB L3-L5 x2, Cervical injections w a Neurologist Patient is currently on [place], Ibu Patient denies any side effects of the medication(s), denies excessive drowsiness or sleepiness, denies suicidal ideation and reports that the current pain medication is helping to control the pain and improve activities of daily living. Patient denies any motor or sensory deficits. Patient denies any fever or night sweats, denies any change in the bowel movements or urination. Physical Examination: -Constitutional: Cooperative. Not in acute distress . - Neurologic: Cranial nerve II to XII intact. No focal neurological deficits. - Psychatric: Alert & oriented x 3. Matching mood & appropriate affect. Judgment and insight intact. - Musculoskeletal: Cervical spine: Muscle bulk/ tone/ strength in the bilateral upper extremities normal Vertebral body tenderness to palpation over C6 Spurling test positive Distraction test positive Facet loading test positive TTP Thoracic spine Muscle bulk / tone/ strength in the bilateral paraspinal muscles normal Vertebral body tender to palpation over Facet loading test positive TTP Lumbar spine: Motor bulk/ tone/ strength lower extremities , thigh and legs : 5/5 Deep tendon reflexes : Normal Knee Jerk. Normal Ankle Jerk . Vertebral body tenderness to palpation over Jameson Test positive Lumbar Facet Loading Test positive Straight Leg Raise: positive at 30 degrees right side/ left side Gaenslen's Test positive Sacral spine : Severe tenderness over the Sacroiliac joint: right side / left side Range of motion: Flexion of the lumbar spine <60 degrees Range of motion: Extension of the lumbar spine <20 degrees Gaenslen's Test positive right side / left side Leena test: positive right side / left side Thigh Thrust Test positive right side / left side Sacral Thrust Test positive right side / left side Assessment and plan: Chronic LBP secondary to lumbar DDD, spondylosis with facet arthropathy without myelopathy Recommendation of cervical x ray M50.30 May need additional testing if indicated. All questions answered. I have spent less than 30 minutes on patient care today. Dr Naranjo was available by phone for the evaluation of this patient. The time was used to review the medical records including relevant urine studies and Prescription history (MAPs), review of the available imaging, evaluation and examination of the patient, coordination of care with the medical staff and if applicable referring physicians, as well as creation of the medical record PQRS Narrative: Smoking Status Never smoker Hx Alcohol Use (MH) No Home Medications: Ambulatory Orders DULoxetine HCL [Cymbalta] 60 mg PO DAILY 02/22/23 FLUoxetine HCL 20 mg PO DAILY 02/22/23 HYDROcodone/APAP 7.5-325MG [[place] 7.5-325] 1 tab PO Q6HR PRN 3 Days #12 tab 02/22/23 Meloxicam [Mobic] 15 mg PO BID 02/22/23 Omeprazole 40 mg PO DAILY PRN 02/22/23 amLODIPine [Norvasc] 5 mg PO DAILY 02/22/23 diazePAM [Valium] 5 mg PO BID 02/22/23 Controlled Substance Measures - Controlled Substance Measures Is patient prescribed a controlled substance at discharge?: No
== END ==
LOC: PNWHC3 13:31
PROVIDERS: ATTEND Specialist
DX: M50.322 Other cervical disc degeneration at C5-C6 level (principal); M47.812 Spondylosis without myelopathy or radiculopathy, cervical region; G89.29 Other chronic pain; M51.36 Other intervertebral disc degeneration, lumbar region; M47.816 Spondylosis without myelopathy or radiculopathy, lumbar region
CPT/HCPCS: 99211

== ENCOUNTER → 2023-08-16 | Outpatient (CLI) | payer MEDICARE, OTHER ==
--- NOTE | 2023-08-16 08:35 | MR ---
EXAMINATION TYPE: MR cervical spine wo con DATE OF EXAM: 08/16/2023 6:20 AM CLINICAL INDICATION:Male, 52 years old with history of M50.30 cervicalgia; PHH, Neck pain, headaches, BUE radiculopathy. COMPARISON: 08/11/2023.. TECHNIQUE: Multi planar, multi sequence imaging was performed utilizing: T1-weighted, T2-weighted, an d turbo inversion recovery imaging of the cervical spine. IV Contrast: (none if empty) FINDINGS: Alignment: The cervical vertebral bodies have preserved heights. Alignment is within normal limits gi sindy patient positioning. Bones: Scattered Modic endplate changes with osteophytes and disc space narrowing. Multilevel degener ative disc disease is noted and most pronounced at the C5-C7 vertebral levels. Cord: The spinal cord is unremarkable with regards to their signal intensity and morphology. Discs: Multilevel disc desiccation is present. C2-C3: No significant disc pathology. The spinal canal is patent. No neural foraminal stenosis. C3-C4: No significant disc pathology. The spinal canal is patent. No neural foraminal stenosis. C4-C5: No significant disc pathology. The spinal canal is patent. No neural foraminal stenosis. C5-C6: No significant disc pathology. The spinal canal is patent. Bilateral facet and uncovertebral joint arthropathy are present with moderate bilateral neural foraminal stenosis. C6-C7: No significant disc pathology. The spinal canal is patent. No neural foraminal stenosis. C7-T1: No significant disc pathology. The spinal canal is patent. No neural foraminal stenosis. Other: None. IMPRESSION: 1. No evidence for disc herniation or significant spinal canal stenosis. 2. Mild disc degeneration with associated osteoarthritic changes. No foraminal stenosis worse at C5-C 6 and moderate bilateral.
== END | disposition home or self-care (01) ==
LOC: RADMRIMAIN 05:43
PROVIDERS: ATTEND Specialist
DX: M47.22 Other spondylosis with radiculopathy, cervical region (principal); M50.10 Cervical disc disorder with radiculopathy, unspecified cervical region
CPT/HCPCS: 72141

== ENCOUNTER → 2023-08-23 | Outpatient (CLI) | payer MEDICARE, OTHER ==
[2023-08-23 08:05] VITALS: BP 132/86; PULSE 78; RESP 15; TEMP 97.2
--- NOTE | 2023-08-23 15:00 | P.PAINPG ---
PQRS Measure Charge Sheet Comment: A 52 yr old male with a history of severe and chronic neck pain secondary to DDD and spondylosis with facet arthropathy without myelopathy presents today for evaluation. Pain level is provoked at 6 /10 in intensity, constant, predominantly axial, localized in the cervical spine, sharp in character without shooting pain . Pain is provoked by lateral flexion and rotation. Pain is alleviated with injections, PT semi weekly x 5 wks w last visit in May 2023 (lumbar) and PT x 6 wks in 2021 (cervical), physician guided home exercises for cervical spine 4 times weekly since Apr 2022, heat, ice, medications, repositioning and rest. Cervical disability score at 25. Interventional pain procedures completed include BL MBB L3-L5 x2, Cervical injections w a Neurologist Patient is currently on [place], Ibu Patient denies any side effects of the medication(s), denies excessive drowsiness or sleepiness, denies suicidal ideation and reports that the current pain medication is helping to control the pain and improve activities of daily living. Patient denies any motor or sensory deficits. Patient denies any fever or night sweats, denies any change in the bowel movements or urination. Physical Examination: -Constitutional: Cooperative. Not in acute distress . - Neurologic: Cranial nerve II to XII intact. No focal neurological deficits. - Psychatric: Alert & oriented x 3. Matching mood & appropriate affect. Judgment and insight intact. - Musculoskeletal: Cervical spine: Muscle bulk/ tone/ strength in the bilateral upper extremities normal Vertebral body tenderness to palpation Spurling test positive Distraction test positive Facet loading test positive TTP over BL C4-C5, C5-C6 Thoracic spine Muscle bulk / tone/ strength in the bilateral paraspinal muscles normal Vertebral body tender to palpation over Facet loading test positive TTP Lumbar spine: Motor bulk/ tone/ strength lower extremities , thigh and legs : 5/5 Deep tendon reflexes : Normal Knee Jerk. Normal Ankle Jerk . Vertebral body tenderness to palpation over Jameson Test positive Lumbar Facet Loading Test positive Straight Leg Raise: positive at 30 degrees right side/ left side Gaenslen's Test positive Sacral spine : Severe tenderness over the Sacroiliac joint: right side / left side Range of motion: Flexion of the lumbar spine <60 degrees Range of motion: Extension of the lumbar spine <20 degrees Gaenslen's Test positive right side / left side Leena test: positive right side / left side Thigh Thrust Test positive right side / left side Sacral Thrust Test positive right side / left side Imaging: MRI noncontrast of the cervical spine from 08/16/23 reviewed Assessment and plan: Chronic LBP secondary to lumbar DDD, spondylosis with facet arthropathy without myelopathy Recommendation of BL MBB C4-C5, C5-C6 #1. May need a series of injections, up until RFA, for optimal pain relief. Risks, benefits of procedure discussed and patient verbalized understanding. Protocol for discontinuation/continuation of medications surrounding procedure discussed. All questions answered. I have spent less than 30 minutes on patient care today. Dr Naranjo was available by phone for the evaluation of this patient. The time was used to review the medical records including relevant urine studies and Prescription history (MAPs), review of the available imaging, evaluation and examination of the patient, coordination of care with the medical staff and if applicable referring physicians, as well as creation of the medical record PQRS Narrative: Smoking Status Never smoker Hx Alcohol Use (MH) No Home Medications: Ambulatory Orders DULoxetine HCL [Cymbalta] 60 mg PO DAILY 02/22/23 FLUoxetine HCL 20 mg PO DAILY 02/22/23 HYDROcodone/APAP 7.5-325MG [[place] 7.5-325] 1 tab PO Q6HR PRN 3 Days #12 tab 02/22/23 Meloxicam [Mobic] 15 mg PO BID 02/22/23 Omeprazole 40 mg PO DAILY PRN 02/22/23 amLODIPine [Norvasc] 5 mg PO DAILY 02/22/23 diazePAM [Valium] 5 mg PO BID 02/22/23 Controlled Substance Measures - Controlled Substance Measures Is patient prescribed a controlled substance at discharge?: No
== END ==
LOC: PNWHC3 07:30
PROVIDERS: ATTEND Specialist
DX: M51.36 Other intervertebral disc degeneration, lumbar region (principal); M47.816 Spondylosis without myelopathy or radiculopathy, lumbar region; G89.29 Other chronic pain
CPT/HCPCS: 99211

== ENCOUNTER 2023-09-10 05:53 | Day surgery (SDC) | payer MEDICARE, OTHER ==
[2023-09-10] MEDS: LACTATED RINGERS 1,000 ML IV SCH (06:18)
[2023-09-10 06:58] VITALS: TEMP 97
[2023-09-10] MEDS ORDERED: MIDAZOLAM 2 MG/2 ML VIAL ONE (06:59)
[2023-09-10] MEDS ORDERED: fentaNYL (PF) 50 MCG/ML 2 ML AMP ONE (06:59)
[2023-09-10] MEDS ORDERED: ONDANSETRON 4 MG/2 ML VIAL ONE (06:59)
[2023-09-10] MEDS ORDERED: ROPIVACAINE 5MG/ML 20ML VIAL ONE (07:04)
[2023-09-10] MEDS ORDERED: DEXAMETHASONE SOD PHOSPHATE 10 MG/ML 1 ML VIAL ONE (07:04)
--- NOTE | 2023-09-10 07:28 | P.PCN ---
Date of Procedure: 09/10/23 Surgeon: Valerie Jasso Pathology: none sent Condition: stable Disposition: PACU Description of Procedure: PREOPERATIVE DIAGNOSIS: Cervical Spondylosis with Facet Arthropathy.without myelopathy POSTOPERATIVE DIAGNOSIS: Cervical Spondylosis Facet Arthropathy. Without myelopathy PROCEDURES: Diagnostic Bilateral medial branchs block with fluoroscopic guidance for levels C4, C5, and C6 bilaterally ANESTHESIA: Local with 1% lidocaine; IV sedation by the anesthesia Department EBL: Minimal PROCEDURE INDICATION: The patient with neck pain secondary to cervical arthropathy unresponsive to more conservative treatments. PROCEDURE DESCRIPTION / TECHNIQUE: The patient was seen and identified in the preoperative area. Risks, benefits, complications, and alternatives were discussed with the patient, the patient agreed to proceed with the procedure and signed the consent. IV was started. Vital signs remained stable throughout the procedure. Patient was taken to the OR and time out was completed. The patient was placed in the supine position on the procedure table. . The cervical area was prepped with chloraprep and draped in the usual sterile fashion. Critical pause was taken. Vital signs were closely monitored during the procedure. Conscious sedation was used during the procedure to decrease patients anxiety. Using cross-table lateral fluoroscopy, the centers of the trapezoid of C4,C5, and C6 were identified, marked, and localized with 1% lidocaine 1 ml at each level for skin and Sub Q infiltrations . Subsequently, a 22 G 3.5 inch spinal needle was advanced guided by fluoroscopy to the target points mentioned above. Subsequently, 2 ml of preservative-free Ropivacaine 0.5% mixed with Dexamethasone 10 mg and half ml of the mixture was injected at each level after negative aspiration for blood and CSF. [place] were then removed intact the same procedure was repeated ont the left side in the same manner. COMPLICATIONS: No acute complications. DISPOSITION / PLANS: The patient was placed in a supine position and transferred to the recovery area in a stable condition for observation and was discharged from the recovery room after meeting discharge criteria. Home discharge instructions given to the patient by the staff. The patient was reexamined prior to discharge. The patient will schedule a follow up in the clinic in 2-4 weeks.
[2023-09-10] MEDS: IV FLUID CONTINUATION 700 ML IV ONE (07:32)
--- NOTE | 2023-09-10 07:38 | FL ---
Fluoroscopy History: Steven C/TH Facet Steven cervical facet 26sec fluoro time [id number] DAP
[2023-09-10 08:29] VITALS: BP 131/81; PULSE 85; RESP 20
== END 2023-09-10 08:02 | disposition home or self-care (01) ==
LOC: ORPAIN 05:53
PROVIDERS: ATTEND Anesthesiology
DX: M47.812 Spondylosis without myelopathy or radiculopathy, cervical region (principal); I10 Essential (primary) hypertension; E78.5 Hyperlipidemia, unspecified; F43.10 Post-traumatic stress disorder, unspecified; F41.9 Anxiety disorder, unspecified; F32.A Depression, unspecified; Z98.890 Other specified postprocedural states; Z79.899 Other long term (current) drug therapy
CPT/HCPCS: 64491 ×2; 64490; 99152; J2250; J1100; J2405; J3010; J2795

== ENCOUNTER → 2023-09-27 | Outpatient (CLI) | payer MEDICARE ==
[2023-09-27 14:10] VITALS: BP 142/83; PULSE 95; RESP 15; TEMP 98.7
--- NOTE | 2023-09-27 14:12 | P.PAINPG ---
PQRS Measure Charge Sheet Comment: A 52 yr old male with a history of severe and chronic neck pain secondary to DDD and spondylosis with facet arthropathy without myelopathy presents today for evaluation s/p BL MBB C4-C6 #1. Pt states he experienced 780 % pain relief x 12 hrs s/p procedure. Pain level is provoked at 6 /10 in intensity, constant, predominantly axial, localized in the cervical spine, sharp in character without shooting pain . Pain is provoked by lateral flexion and rotation. Pain is alleviated with injections, PT semi weekly x 5 wks w last visit in May 2023 (lumbar) and PT x 6 wks in 2021 (cervical), physician guided home exercises for cervical spine 4 times weekly since Apr 2022, heat, ice, medications, repositioning and rest. Cervical disability score at 24. Interventional pain procedures completed include BL MBB L3-L5 x2, Cervical injections w a Neurologist, BL MBB C4-C6 x1 Patient is currently on [place], Ibu Patient denies any side effects of the medication(s), denies excessive drowsiness or sleepiness, denies suicidal ideation and reports that the current pain medication is helping to control the pain and improve activities of daily living. Patient denies any motor or sensory deficits. Patient denies any fever or night sweats, denies any change in the bowel movements or urination. Physical Examination: -Constitutional: Cooperative. Not in acute distress . - Neurologic: Cranial nerve II to XII intact. No focal neurological deficits. - Psychatric: Alert & oriented x 3. Matching mood & appropriate affect. Judgment and insight intact. - Musculoskeletal: Cervical spine: Muscle bulk/ tone/ strength in the bilateral upper extremities normal Vertebral body tenderness to palpation Spurling test positive Distraction test positive Facet loading test positive TTP over BL C4-C5, C5-C6 Thoracic spine Muscle bulk / tone/ strength in the bilateral paraspinal muscles normal Vertebral body tender to palpation over Facet loading test positive TTP Lumbar spine: Motor bulk/ tone/ strength lower extremities , thigh and legs : 5/5 Deep tendon reflexes : Normal Knee Jerk. Normal Ankle Jerk . Vertebral body tenderness to palpation over [place] Test positive Lumbar Facet Loading Test positive Straight Leg Raise: positive at 30 degrees right side/ left side Gaenslen's Test positive Sacral spine : Severe tenderness over the Sacroiliac joint: right side / left side Range of motion: Flexion of the lumbar spine <60 degrees Range of motion: Extension of the lumbar spine <20 degrees Gaenslen's Test positive right side / left side Leena test: positive right side / left side Thigh Thrust Test positive right side / left side Sacral Thrust Test positive right side / left side Imaging: MRI noncontrast of the cervical spine from 08/16/23 reviewed Assessment and plan: Chronic LBP secondary to lumbar DDD, spondylosis with facet arthropathy without myelopathy Recommendation of BL MBB C4-C5, C5-C6 #2. May need a series of injections, up until RFA, for optimal pain relief. Risks, benefits of procedure discussed and patient verbalized understanding. Protocol for discontinuation/continuation of medications surrounding procedure discussed. All questions answered. I have spent less than 30 minutes on patient care today. Dr Naranjo was available by phone for the evaluation of this patient. The time was used to review the medical records including relevant urine studies and Prescription history (MAPs), review of the available imaging, evaluation and examination of the patient, coordination of care with the medical staff and if applicable referring physicians, as well as creation of the medical record PQRS Narrative: Smoking Status Never smoker Hx Alcohol Use (MH) No Home Medications: Ambulatory Orders DULoxetine HCL [Cymbalta] 60 mg PO DAILY 02/22/23 FLUoxetine HCL 20 mg PO DAILY 02/22/23 HYDROcodone/APAP 7.5-325MG [[place] 7.5-325] 1 tab PO Q6HR PRN 3 Days #12 tab 02/22/23 Meloxicam [Mobic] 15 mg PO BID 02/22/23 Omeprazole 40 mg PO DAILY PRN 02/22/23 amLODIPine [Norvasc] 5 mg PO DAILY 02/22/23 diazePAM [Valium] 5 mg PO BID 02/22/23 Controlled Substance Measures - Controlled Substance Measures Is patient prescribed a controlled substance at discharge?: No
== END ==
LOC: PNWHC3 13:15
PROVIDERS: ATTEND Specialist
DX: M51.36 Other intervertebral disc degeneration, lumbar region (principal); G89.29 Other chronic pain; M47.816 Spondylosis without myelopathy or radiculopathy, lumbar region
CPT/HCPCS: 99211

== ENCOUNTER 2023-10-19 11:33 | Day surgery (SDC) | payer MEDICARE ==
[2023-10-19] MEDS: ONDANSETRON 4 MG/2 ML VIAL ONE (12:17)
[2023-10-19] MEDS: LACTATED RINGERS 1,000 ML IV ONE ×2 (12:17→13:06)
[2023-10-19 12:31] VITALS: RESP 16; TEMP 97.3
[2023-10-19] MEDS ORDERED: ROPIVACAINE 5MG/ML 20ML VIAL ONE (12:31)
[2023-10-19] MEDS ORDERED: DEXAMETHASONE SOD PHOSPHATE 10 MG/ML 1 ML VIAL ONE (12:31)
[2023-10-19] MEDS ORDERED: IOPAMIDOL M200 10 ML VIAL ONE (12:31)
[2023-10-19] MEDS ORDERED: MIDAZOLAM 2 MG/2 ML VIAL ONE (12:31)
--- NOTE | 2023-10-19 13:05 | P.PCN ---
Date of Procedure: 10/19/23 Procedure(s) Performed: Procedure: Bilateral Cervical Facet Joint/Medial Branch Block under biplanar fluoroscopy Preoperative diagnosis: Cervical Spondylosis Postoperative Diagnosis: Cervical Spondylosis Surgeon: Dr. Hurt IV sedation with: versed Anesthesia: Local with 1% Lidocaine 8ml and conscious sedation with 2mg IV Versed Given for: Anxiety Fluoroscopy image saved and stored The patient was seen and examined in the [facility]. Procedure risks and benefits were fully reviewed with patient. The patient understands this is a diagnostic as well as a therapeutic procedure and that the goal of the procedure is to inject medication into the medial branch or small nerves that go into the facet joints. In this way, we can hopefully identify which of these joints, if any, may be contributing to their pain. Informed consent for the procedure was obtained. The patient was taken into the office fluoroscopy procedure room and placed lateral on the table. Vital signs were closely monitored during the procedure. The skin over the area was prepped with Betadine X 3 and draped in usual sterile manner. Sterile technique was observed throughout procedure. Under fluoroscopic guidance, the target injection areas of the C4, C5, C6 medial branch nerves were visualized in AP, oblique and lateral views. Lidocaine 1% was used with a 22 gauge needle to achieve adequate local anesthesia of the skin and subcutaneous tissue. Using biplanar fluoroscopy, a 25 gauge 3.5 inch spinal needle was inserted into proper position where the tip of the needle was located at the lateral waist of transverse process of C4,C5,C6 bilaterally. After negative aspiration for blood and CSF, 0.5 cc of 0.5 % Ropivacaine with 2.5mg of dexamethasone was injected into each of the targeted areas. This was performed bilateral . The needles were withdrawn intact. No complications were noted during the procedure. The patient tolerated procedure well. The patient was placed in supine position and transferred to the recovery area for observation and remained stable until discharged home. Home discharge instructions given to the patient by the staff. The patient was reexamined prior to discharge. The patient will schedule a repeat procedure in 2-4 weeks. _
[2023-10-19] MEDS ORDERED: LACTATED RINGERS 1,000 ML IV SCH (13:15)
--- NOTE | 2023-10-19 13:35 | FL ---
EXAMINATION TYPE: FL guided pain mgmt statistic Intraoperative/procedural fluoroscopic services were provided. Total fluoroscopy time is 48.7 seconds with a total of 4 submitted images to PACS. Please s ee the operative/procedural note for further details. DAP: 0.00662 mGym2 Gycm2 uGym2 cGycm2
[2023-10-19 13:41] VITALS: BP 114/78; PULSE 88
== END 2023-10-19 13:26 | disposition home or self-care (01) ==
LOC: ORPAIN 11:33
PROVIDERS: ATTEND Anesthesiology
DX: M47.812 Spondylosis without myelopathy or radiculopathy, cervical region (principal)
CPT/HCPCS: 64490; 64491 ×2; J2250; J1100; J2405; Q9966; J2795

== ENCOUNTER → 2023-11-10 | Outpatient (CLI) | payer MEDICARE, OTHER ==
[2023-11-10 08:45] VITALS: BP 132/72; PULSE 77; RESP 15; TEMP 98.5
--- NOTE | 2023-11-10 13:47 | P.PAINPG ---
PQRS Measure Charge Sheet Comment: A 52 yr old male with a history of severe and chronic neck pain secondary to DDD and spondylosis with facet arthropathy without myelopathy presents today for evaluation s/p BL MBB C4-C6 #2. Pt states he experienced 80 % pain relief x 16 hrs s/p procedure. Pain level is provoked at 6 /10 in intensity, constant, predominantly axial, localized in the cervical spine, sharp in character without shooting pain . Pain is provoked by lateral flexion and rotation. Pain is alleviated with injections, PT semi weekly x 5 wks w last visit in May 2023 (lumbar) and PT x 6 wks in 2021 (cervical), physician guided home exercises for cervical spine 4 times weekly since Apr 2022, heat, ice, medications, repositioning and rest. Cervical disability score at 23. Interventional pain procedures completed include BL MBB L3-L5 x2, Cervical injections w a Neurologist, BL MBB C4-C6 x2 Patient is currently on [place], Ibu Patient denies any side effects of the medication(s), denies excessive drowsiness or sleepiness, denies suicidal ideation and reports that the current pain medication is helping to control the pain and improve activities of daily living. Patient denies any motor or sensory deficits. Patient denies any fever or night sweats, denies any change in the bowel movements or urination. Physical Examination: -Constitutional: Cooperative. Not in acute distress . - Neurologic: Cranial nerve II to XII intact. No focal neurological deficits. - Psychatric: Alert & oriented x 3. Matching mood & appropriate affect. Judgment and insight intact. - Musculoskeletal: Cervical spine: Muscle bulk/ tone/ strength in the bilateral upper extremities normal Vertebral body tenderness to palpation Spurling test positive Distraction test positive Facet loading test positive TTP over BL C4-C5, C5-C6 Thoracic spine Muscle bulk / tone/ strength in the bilateral paraspinal muscles normal Vertebral body tender to palpation over Facet loading test positive TTP Lumbar spine: Motor bulk/ tone/ strength lower extremities , thigh and legs : 5/5 Deep tendon reflexes : Normal Knee Jerk. Normal Ankle Jerk . Vertebral body tenderness to palpation over Jameson Test positive Lumbar Facet Loading Test positive Straight Leg Raise: positive at 30 degrees right side/ left side Gaenslen's Test positive Sacral spine : Severe tenderness over the Sacroiliac joint: right side / left side Range of motion: Flexion of the lumbar spine <60 degrees Range of motion: Extension of the lumbar spine <20 degrees Gaenslen's Test positive right side / left side Leena test: positive right side / left side Thigh Thrust Test positive right side / left side Sacral Thrust Test positive right side / left side Imaging: MRI noncontrast of the cervical spine from 08/16/23 reviewed Assessment and plan: Chronic LBP secondary to lumbar DDD, spondylosis with facet arthropathy without myelopathy Recommendation of BL RFA C4-C5, C5-C6. Exhibited optimal pain relief w prior BL MBB C4-C6 procedures. Risks, benefits of procedure discussed and patient verbalized understanding. Protocol for discontinuation/continuation of medications surrounding procedure discussed. All questions answered. I have spent less than 30 minutes on patient care today. Dr Naranjo was available by phone for the evaluation of this patient. The time was used to review the medical records including relevant urine studies and Prescription history (MAPs), review of the available imaging, evaluation and examination of the patient, coordination of care with the medical staff and if applicable referring physicians, as well as creation of the medical record PQRS Narrative: Smoking Status Never smoker Hx Alcohol Use (MH) No Home Medications: Ambulatory Orders DULoxetine HCL [Cymbalta] 60 mg PO DAILY 02/22/23 FLUoxetine HCL 20 mg PO DAILY 02/22/23 HYDROcodone/APAP 7.5-325MG [[place] 7.5-325] 1 tab PO Q6HR PRN 3 Days #12 tab 02/22/23 Meloxicam [Mobic] 15 mg PO BID 02/22/23 Omeprazole 40 mg PO DAILY PRN 02/22/23 amLODIPine [Norvasc] 5 mg PO DAILY 02/22/23 diazePAM [Valium] 5 mg PO BID 02/22/23 Controlled Substance Measures - Controlled Substance Measures Is patient prescribed a controlled substance at discharge?: No
== END ==
LOC: PNWHC3 08:05
PROVIDERS: ATTEND Specialist
DX: M51.36 Other intervertebral disc degeneration, lumbar region (principal); M47.816 Spondylosis without myelopathy or radiculopathy, lumbar region; G89.29 Other chronic pain; M50.321 Other cervical disc degeneration at C4-C5 level; M50.322 Other cervical disc degeneration at C5-C6 level
CPT/HCPCS: 99211

== ENCOUNTER 2023-11-26 06:09 | Day surgery (SDC) | payer MEDICARE, OTHER ==
[2023-11-24 16:14] VITALS: BMI 37.3
[2023-11-26] MEDS ORDERED: ONDANSETRON 4 MG/2 ML VIAL ONE (06:34)
[2023-11-26 06:38] VITALS: TEMP 97.4
[2023-11-26] MEDS: LACTATED RINGERS 1,000 ML IV SCH (06:42)
[2023-11-26] MEDS: ONDANSETRON 4 MG/2 ML VIAL IVP ONE (06:43)
[2023-11-26] MEDS ORDERED: fentaNYL (PF) 50 MCG/ML 2 ML AMP ONE (06:55)
[2023-11-26] MEDS ORDERED: MIDAZOLAM 2 MG/2 ML VIAL ONE (06:55)
[2023-11-26] MEDS ORDERED: methylPREDNISolone ACETATE 40 MG/ML 1 ML VIAL ONE (07:00)
[2023-11-26] MEDS ORDERED: ROPIVACAINE 5MG/ML 20ML VIAL ONE (07:00)
--- NOTE | 2023-11-26 07:29 | P.PCN ---
Date of Procedure: 11/26/23 Procedure(s) Performed: PREOPERATIVE DIAGNOSIS: Cervical spondylosis with Facet Arthropathy without myelopathy. POSTOPERATIVE DIAGNOSIS: Cervical spondylosis with Facet Arthropathy without myelopathy. PROCEDURES: Radiofrequency thermocoagulation,Right C4, C5, C6 medial branch with Fluroscopy [place](fluoroscopy was available in Radiology department ) (to denervate the facet joint at Right C4- 5 , C5- 6 ) ANESTHESIA: Monitored anesthesia care as per anesthesia department . EBL: Minimal PROCEDURE INDICATION: The patient with neck pain secondary to cervical arthropathy who had more than 80% relief of her pain with previous diagnostic cervical medial branch block. PROCEDURE DESCRIPTION / TECHNIQUE: The patient was seen and identified in the preoperative area. Risks, benefits, complications, and alternatives were discussed with the patient, the patient agreed to proceed with the procedure and signed the consent. IV was started. Vital signs remained stable throughout the procedure. Patient was taken to the OR and time out was completed. The patient was placed in the lateral position on the procedure table ( Right side up ). The cervical area was prepped and draped in the usual sterile fashion. Critical pause was taken. Vital signs were closely monitored during the procedure. Conscious sedation was used during the procedure to decrease patients anxiety. Using cross-table lateral fluoroscopy, the centroid of the trapezoid of Right C4, C5, and C6 were identified, marked, and localized with 1% lidocaine. Subsequently, a 20 [id number] radiofrequency cannula with a 10-mm active tip was advanced guided by fluoroscopy to the centroid of the trapezoid of Right C4, C5, and C6 . Needle tip position was confirmed at the centroid of the trapezoids of right C4, C5, and C6 with anteroposterior fluoroscopy. Each site then underwent sensory testing at 50 Hz and 0 to 1 volt and motor testing at 2 Hz and 0 to 3 volt with local stimulation, but no radicular symptoms down the arm. Thereafter each sites underwent radiofrequency thermocoagulation at 80 degrees celsius for 90 seconds after injecting 0.5 ml of PF Ropivacaine 0.5 %. After thermocoagulation, 1 ml of the block solution containing Depo-Medrol 40 mg and 3 mL of preservative-free normal saline was injected at the right C4, C5, and C6 levels after negative aspiration of CSF and blood and with no paresthesias. Cannulas were retracted while injecting Ropivacaine 0.5 % until the needle is out. Skin was cleansed and bandages were applied. COMPLICATIONS: No acute complications. DISPOSITION / PLANS: The patient was placed in a supine position and transferred to the recovery area in a stable condition for observation and was discharged from the recovery room after meeting discharge criteria. Home discharge instructions given to the patient by the staff. The patient was reexamined prior to discharge. The patient will schedule a follow up in the clinic in 2-4 weeks to do the RFA on the left side.
[2023-11-26] MEDS: IV FLUID CONTINUATION 1,000 ML IV ONE (07:31)
--- NOTE | 2023-11-26 07:43 | FL ---
Fluoroscopy History: RF CERVICAL 36 sec fluoro, DAP .[id number] mGym2
[2023-11-26 08:07] VITALS: BP 137/95; PULSE 82; RESP 16
== END 2023-11-26 08:02 | disposition home or self-care (01) ==
LOC: ORPAIN 06:09
PROVIDERS: ATTEND Specialist
DX: M47.812 Spondylosis without myelopathy or radiculopathy, cervical region (principal); I10 Essential (primary) hypertension; E78.5 Hyperlipidemia, unspecified; F41.9 Anxiety disorder, unspecified; F32.A Depression, unspecified; F43.10 Post-traumatic stress disorder, unspecified; E66.9 Obesity, unspecified; Z79.899 Other long term (current) drug therapy; Z79.1 Long term (current) use of non-steroidal anti-inflammatories (NSAID); Z68.41 Body mass index [BMI] 40.0-44.9, adult
CPT/HCPCS: 64633; 64634; J2250; J2405; J3010; J2795; J1010

== ENCOUNTER → 2023-12-10 | Day surgery (SDC) | payer MEDICARE ==
[~2023-12-10] MED LIST changes: +DEXAMETHASONE SOD PHOSPHATE 10 MG/ML 1 ML VIAL ONE; -DEXAMETHASONE SOD PHOSPHATE 4 MG/ML 1 ML VIAL IV ONE; -LACTATED RINGERS 1,000 ML IV SCH; -MIDAZOLAM 2 MG/2 ML VIAL IV PRN; +MIDAZOLAM 2 MG/2 ML VIAL ONE; -ONDANSETRON 4 MG/2 ML VIAL IVP ONE; +ROPIVACAINE 5MG/ML 20ML VIAL ONE; -SCOPOLAMINE 1.5MG/72HR PATCH TRANSDERM ONE; +fentaNYL (PF) 50 MCG/ML 2 ML AMP ONE
[2023-12-10] MEDS: LACTATED RINGERS 1,000 ML IV SCH (07:16)
[2023-12-10] MEDS: ONDANSETRON 4 MG/2 ML VIAL ONE (07:16)
[2023-12-10 07:33] VITALS: TEMP 97.6
--- NOTE | 2023-12-10 08:27 | P.PCN ---
Date of Procedure: 12/10/23 Surgeon: Valerie Jasso Pathology: none sent Condition: stable Disposition: PACU Description of Procedure: PREOPERATIVE DIAGNOSIS: Cervical spondylosis with Facet Arthropathy without myelopathy. POSTOPERATIVE DIAGNOSIS: Cervical spondylosis with Facet Arthropathy without myelopathy. PROCEDURES: Radiofrequency thermocoagulation,Left C4, C5, C6 medial branch with Fluroscopy [place](fluoroscopy was available in Radiology department ) (to denervate the facet joint at Left C4- 5 , C5- 6 ) ANESTHESIA: Monitored anesthesia care as per anesthesia department . EBL: Minimal PROCEDURE INDICATION: The patient with neck pain secondary to cervical arthropathy who had more than 80% relief of her pain with previous diagnostic cervical medial branch block. PROCEDURE DESCRIPTION / TECHNIQUE: The patient was seen and identified in the preoperative area. Risks, benefits, complications, and alternatives were discussed with the patient, the patient agreed to proceed with the procedure and signed the consent. IV was started. Vital signs remained stable throughout the procedure. Patient was taken to the OR and time out was completed. The patient was placed in the lateral position on the procedure table ( Right side up ). The cervical area was prepped and draped in the usual sterile fashion. Critical pause was taken. Vital signs were closely monitored during the procedure. Conscious sedation was used during the procedure to decrease patients anxiety. Using cross-table lateral fluoroscopy, the centroid of the trapezoid of Left C4, C5, and C6 were identified, marked, and localized with 1% lidocaine. Subsequently, a 20 -wv radiofrequency cannula with a 10-mm active tip was advanced guided by fluoroscopy to the centroid of the trapezoid of left C4, C5, and C6 . Needle tip position was confirmed at the centroid of the trapezoids of left C4, C5, and C6 with anteroposterior fluoroscopy. Each site then underwent sensory testing at 50 Hz and 0 to 1 volt and motor testing at 2 Hz and 0 to 3 volt with local stimulation, but no radicular symptoms down the arm. Thereafter each sites underwent radiofrequency thermocoagulation at 80 degrees celsius for 90 seconds after injecting 0.5 ml of PF Lidocaine 1%. After thermocoagulation, 1 ml of the block solution containing Decadron 10 mg mg and 3 mL of Ropivacaine 0.5% was injected at the left C4, C5, and C6 levels after negative aspiration of CSF and blood and with no paresthesias. Cannulas were retracted while injecting Ropivacaine 0.5 % until the needle is out. Skin was cleansed and bandages were applied. COMPLICATIONS: No acute complications. DISPOSITION / PLANS: The patient was placed in a supine position and transferred to the recovery area in a stable condition for observation and was discharged from the recovery room after meeting discharge criteria. Home discharge instructions given to the patient by the staff. The patient was reexamined prior to discharge. The patient will schedule a follow up in the clinic in 2-4 weeks to do the RFA on the left side.
[2023-12-10 09:10] VITALS: PULSE 80; RESP 16
[2023-12-10 09:11] VITALS: BP 108/70
--- NOTE | 2023-12-12 20:53 | FL ---
EXAMINATION TYPE: FL guided pain mgmt statistic DATE OF EXAM: 12/10/2023 FLUOROSCOPY Procedure for neck pain, facet injections/ablation cervical spine. 23 sec FL, .[id number] mGycm2 DAP dose. 4 images provided.
== END ==
LOC: ORPAIN 06:42
PROVIDERS: ATTEND Anesthesiology
DX: M47.812 Spondylosis without myelopathy or radiculopathy, cervical region (principal); Z88.8 Allergy status to other drugs, medicaments and biological substances; Z79.899 Other long term (current) drug therapy
CPT/HCPCS: 64633; 64634; J2250; J1100; J2405; J3010; J2795

== ENCOUNTER → 2024-01-20 | Outpatient (CLI) | payer MEDICARE ==
[2024-01-20 13:45] VITALS: BP 120/78; PULSE 66; RESP 16
--- NOTE | 2024-01-20 15:10 | P.PAINPG ---
PQRS Measure Charge Sheet Comment: A 52 yr old male with a history of severe and chronic neck pain secondary to DDD and spondylosis with facet arthropathy without myelopathy presents today for evaluation s/p BL RFA C4-C6. Pt states he experienced 50 % pain relief s/p procedure. Pain level is provoked at 6 /10 in intensity, constant, predominantly axial, localized in the lower cervical spine, sharp in character w shooting pain towards the L shoulder. Pain is provoked by contact w clothing or palpation over L shoulder. Pain is alleviated with injections, PT semi weekly x 5 wks w last visit in May 2023 (lumbar) and PT x 6 wks in 2021 (cervical), physician guided home exercises for cervical spine 4 times weekly since Apr 2022, heat, ice, medications, repositioning and rest. Cervical disability score at 20. Interventional pain procedures completed include BL MBB L3-L5 x2, Cervical injections w a Neurologist, BL RFA C4-C6 (December 2023) Patient is currently on [place], Ibu Patient denies any side effects of the medication(s), denies excessive drowsiness or sleepiness, denies suicidal ideation and reports that the current pain medication is helping to control the pain and improve activities of daily living. Patient denies any motor or sensory deficits. Patient denies any fever or night sweats, denies any change in the bowel movements or urination. Physical Examination: -Constitutional: Cooperative. Not in acute distress . - Neurologic: Cranial nerve II to XII intact. No focal neurological deficits. - Psychatric: Alert & oriented x 3. Matching mood & appropriate affect. Judgment and insight intact. - Musculoskeletal: Cervical spine: Muscle bulk/ tone/ strength in the bilateral upper extremities normal Vertebral body tenderness to palpation Spurling test positive Distraction test positive Facet loading test positive TTP over BL C4-C5, C5-C6 Thoracic spine Muscle bulk / tone/ strength in the bilateral paraspinal muscles normal Vertebral body tender to palpation over Facet loading test positive TTP Lumbar spine: Motor bulk/ tone/ strength lower extremities , thigh and legs : 5/5 Deep tendon reflexes : Normal Knee Jerk. Normal Ankle Jerk . Vertebral body tenderness to palpation over Jameson Test positive Lumbar Facet Loading Test positive Straight Leg Raise: positive at 30 degrees right side/ left side Gaenslen's Test positive Sacral spine : Severe tenderness over the Sacroiliac joint: right side / left side Range of motion: Flexion of the lumbar spine <60 degrees Range of motion: Extension of the lumbar spine <20 degrees Gaenslen's Test positive right side / left side Leena test: positive right side / left side Thigh Thrust Test positive right side / left side Sacral Thrust Test positive right side / left side Imaging: MRI noncontrast of the cervical spine from 08/16/23 reviewed Assessment and plan: Chronic LBP secondary to lumbar DDD, spondylosis with facet arthropathy without myelopathy Recommendation of medication management. Neurontin 100mg PO BID #60 w 1 RF. Use, side effects, adverse reactions, safe storage discussed. May follow up w Dr Bray to explore additional treatment options. All questions answered. I have spent less than 30 minutes on patient care today. Dr Naranjo was available by phone for the evaluation of this patient. The time was used to review the medical records including relevant urine studies and Prescription history (MAPs), review of the available imaging, evaluation and examination of the patient, coordination of care with the medical staff and if applicable referring physicians, as well as creation of the medical record PQRS Narrative: Smoking Status Never smoker Hx Alcohol Use (MH) No Home Medications: Ambulatory Orders HYDROcodone/APAP 7.5-325MG [[place] 7.5-325] 1 tab PO Q6HR PRN 3 Days #12 tab 02/22/23 Ibuprofen [Motrin] 800 mg PO Q8H 11/24/23 Gabapentin [Neurontin] 100 mg PO BID 30 Days #60 cap 01/20/24 Controlled Substance Measures - Controlled Substance Measures Is patient prescribed a controlled substance at discharge?: No
== END ==
LOC: PNWHC3 12:58
PROVIDERS: ATTEND Specialist
DX: M47.812 Spondylosis without myelopathy or radiculopathy, cervical region (principal); M51.36 Other intervertebral disc degeneration, lumbar region; M47.816 Spondylosis without myelopathy or radiculopathy, lumbar region
CPT/HCPCS: 99211